=== PATIENT | male | born 1980 | race Caucasian/White ===

== ENCOUNTER 2020-08-31 18:07 | Emergency (ER) | payer OTHER ==
[~2020-08-31] VITALS: Ht 167.6 cm; Wt 83.9 kg
[2020-08-31 18:29] VITALS: BP_SYST 105
[2020-08-31] MEDS ORDERED: DIPH-TET-PERTUS Vaccine 0.5 ML VIAL (ADACEL) I.M. ONE (18:45)
[2020-08-31] MEDS ORDERED: LIDOCAINE 1% 10 MG/ML, 20 ML MDV IM ONE (18:45)
[2020-08-31] MEDS ORDERED: BACITRACIN 1 GM OINT TP ONE (19:00)
[2020-08-31 19:20] VITALS: BP_SYST 105
== END 2020-08-31 19:19 | disposition home or self-care (01) ==
LOC: SED 18:59
DX: S91.312A Laceration without foreign body, left foot, initial encounter (principal); W18.02XA Striking against glass with subsequent fall, initial encounter; Y93.89 Activity, other specified; Y92.89 Other specified places as the place of occurrence of the external cause; Y99.8 Other external cause status
CPT/HCPCS: 90715; 99283